=== PATIENT | male | born 1970 | race Caucasian/White ===

== ENCOUNTER 2021-05-21 23:35 | Emergency (ER) | payer BC ==
[2021-05-22] MEDS: Sodium Chloride 0.9% 10 ML Syringe FLUSH PRN ×2 (01:55→02:41)
[2021-05-22] MEDS ORDERED: Sodium Chloride 0.9% 10 ML SDV FLUSH ONE (02:40)
[2021-05-22] MEDS ORDERED: Iopamidol 755 Mg/ML 100 ML Bottle IVPUSH ONE (02:40)
--- NOTE | 2021-05-22 02:41 | EDM.PDOC ---
ED HPI GENERAL MEDICAL PROBLEM - General Chief Complaint: Neuro Symptoms/Deficits Stated Complaint: SPEECH IMPAIRMENT/RT SIDE WEAKNESS Time Seen by Provider: 05/21/21 23:49 Source of Information: Reports: Patient History Limitations: Reports: No Limitations - History of Present Illness INITIAL COMMENTS - FREE TEXT/NARRATIVE: The patient presents with trouble speaking and right arm weakness. His last time known well was 11pm the night before. He was at his son's wedding and he started drinking about 11pm and went to bed at about 3am. He was intoxicated then. He woke up at 11am and he said he had trouble getting his words. He can talk but he has trouble finding the right words. He also had some weakness in his right arm. He said on at work he had some trouble with his right arm not working right. It went away in a few minutes. He has no fever, chills, cough, chest, pain, shortness of breath, abdominal pain, nausea or vomiting. This has never happened to him before. Onset: Gradual Duration: Hour(s): (about 24 hours ago) Severity: Mild Improves with: Reports: None Worsens with: Reports: None Associated Symptoms: Reports: No Other Symptoms - Related Data Allergies Allergy/AdvReac Type Severity Reaction Status Date / Time No Known Allergies Allergy Verified 01/09/18 14:29 Home Meds: Home Meds Clopidogrel Bisulfate [Plavix] 75 mg PO DAILY #30 tablet 05/22/21 [Rx] Past Medical History Neurological History: Reports: Other (See Below) Other Neuro History: Graves disease Endocrine/Metabolic History: Reports: Hypothyroidism, Other (See Below) - Infectious Disease History Infectious Disease History: Reports: Chicken Pox Social & Family History - Family History Family Medical History: No Pertinent Family History - Tobacco Use Tobacco Use Status *Q: Current Every Day Tobacco User Years of Tobacco use: 33 Packs/Tins Daily: 1.5 - Caffeine Use Caffeine Use: Reports: Coffee, Soda - Recreational Drug Use Recreational Drug Use: No ED ROS GENERAL - Review of Systems Review Of Systems: See Below Constitutional: Reports: No Symptoms HEENT: Reports: No Symptoms Respiratory: Reports: No Symptoms Cardiovascular: Reports: No Symptoms Endocrine: Reports: No Symptoms GI/Abdominal: Reports: No Symptoms : Reports: No Symptoms Musculoskeletal: Reports: No Symptoms Skin: Reports: No Symptoms Neurological: Reports: Trouble Speaking ED EXAM, NEURO - Physical Exam Exam: See Below Exam Limited By: No Limitations General Appearance: Alert, No Apparent Distress Ears: Normal External Exam Nose: Normal Inspection Head Exam: Atraumatic, Normocephalic Neck: Normal Inspection Respiratory/Chest: No Respiratory Distress, Lungs Clear, Normal Breath Sounds Cardiovascular: Regular Rate, Rhythm, No Edema, No Murmur GI/Abdominal: Soft, Non-Tender, No Organomegaly, No Mass Neurological: Alert, Oriented x 3, Other (He initially had trouble speaking and some right sided facial droop. The facial dropp improved.) #1 Interpretation EKG Date: 05/22/21 Time: 00:25 Rhythm: Other (sinus bradycardia) Rate (Beats/Min): 56 [place]: Normal P-Wave: Present QRS: Normal ST-T: Normal QT: Normal Course - Vital Signs Last Recorded V/S: Last Vital Signs Temp 98.5 F 05/21/21 23:57 Pulse 88 05/21/21 23:57 Resp 18 05/21/21 23:57 BP 174/102 H 05/21/21 23:57 Pulse Ox 94 L 05/21/21 23:57 - Orders/Labs/Meds Orders: Active Orders 24 hr Category Date Time Status Cardiac Monitoring [RC] . DIRECTED Care 05/21/21 23:56 Active Peripheral IV Care [RC] . DIRECTED Care 05/21/21 23:56 Active Ang Head [CT] Stat Exams 05/22/21 02:11 Taken Echo Comp wo Cont [US] Stat Exams 05/22/21 06:18 Ordered TSH [CHEM] Stat Lab 05/22/21 08:00 Received Sodium Chloride 0.9% [Normal Saline] 100 ml Med 05/22/21 02:45 Active IV ASDIRECTED Sodium Chloride 0.9% [Saline Flush] Med 05/21/21 23:56 Active 10 ml FLUSH ASDIRECTED PRN Peripheral IV Insertion Adult [OM.PC] Stat Oth 05/21/21 23:56 Ordered Medication Orders Sodium Chloride (Normal Saline) 100 mls @ 60 mls/min IV ASDIRECTED LILY Last Admin: 05/22/21 02:41 Dose: 60 mls/min Documented by: NIA Sodium Chloride (Sodium Chloride 0.9% 10 Ml Syringe) 10 ml FLUSH ASDIRECTED PRN PRN Reason: Keep Vein Open Last Admin: 05/22/21 02:41 Dose: 10 ml Documented by: Admin: 05/22/21 01:55 Dose: 10 ml Documented by: SHARONA Labs: Laboratory Tests 05/21/21 05/21/21 05/21/21 Range/Units 23:54 23:57 23:57 WBC 13.14 H (4.23-9.07) K/mm3 RBC 5.19 (4.63-6.08) M/mm3 Hgb 14.3 (13.7-17.5) gm/dl Hct 43.8 (40.1-51.0) % MCV 84.4 (79.0-92.2) fl MCH 27.6 (25.7-32.2) pg MCHC 32.6 (32.2-35.5) g/dl RDW Std Deviation 44.7 H (35.1-43.9) fL Plt Count 343 H (163-337) K/mm3 MPV 9.2 L (9.4-12.3) fl Neut % (Auto) 59.4 (34.0-67.9) % Lymph % (Auto) 29.1 (21.8-53.1) % [place] % (Auto) 9.3 (5.3-12.2) % Eos % (Auto) 1.6 (0.8-7.0) Baso % (Auto) 0.4 (0.1-1.2) % Neut # (Auto) 7.81 H (1.78-5.38) K/mm3 Lymph # (Auto) 3.83 H (1.32-3.57) K/mm3 [place] # (Auto) 1.22 H (0.30-0.82) K/mm3 Eos # (Auto) 0.21 (0.04-0.54) K/mm3 Baso # (Auto) 0.05 (0.01-0.08) K/mm3 PT 9.9 (9.7-12.0) SECONDS INR < 0.93 APTT 30.8 (21.7-31.4) SECONDS Sodium (136-145) mEq/L Potassium (3.5-5.1) mEq/L Chloride (98-107) mEq/L Carbon Dioxide (21-32) mEq/L Anion Gap (5-15) BUN (7-18) mg/dL Creatinine (0.7-1.3) mg/dL Est Cr Clr Drug Dosing Estimated GFR (MDRD) (>60) mL/min BUN/Creatinine Ratio (14-18) Glucose (70-99) mg/dL POC Glucose 117 H (70-99) mg/dL Calcium (8.5-10.1) mg/dL Total Bilirubin (0.2-1.0) mg/dL AST (15-37) U/L ALT (16-63) U/L Alkaline Phosphatase (46-116) U/L Troponin I (0.00-0.056) ng/mL Total Protein (6.4-8.2) g/dl Albumin (3.4-5.0) g/dl Globulin gm/dL Albumin/Globulin Ratio (1-2) Ethyl Alcohol (0.00) gm% 05/21/21 05/21/21 Range/Units 23:57 23:57 WBC (4.23-9.07) K/mm3 RBC (4.63-6.08) M/mm3 Hgb (13.7-17.5) gm/dl Hct (40.1-51.0) % MCV (79.0-92.2) fl MCH (25.7-32.2) pg MCHC (32.2-35.5) g/dl RDW Std Deviation (35.1-43.9) fL Plt Count (163-337) K/mm3 MPV (9.4-12.3) fl Neut % (Auto) (34.0-67.9) % Lymph % (Auto) (21.8-53.1) % [place] % (Auto) (5.3-12.2) % Eos % (Auto) (0.8-7.0) Baso % (Auto) (0.1-1.2) % Neut # (Auto) (1.78-5.38) K/mm3 Lymph # (Auto) (1.32-3.57) K/mm3 [place] # (Auto) (0.30-0.82) K/mm3 Eos # (Auto) (0.04-0.54) K/mm3 Baso # (Auto) (0.01-0.08) K/mm3 PT (9.7-12.0) SECONDS INR APTT (21.7-31.4) SECONDS Sodium 138 (136-145) mEq/L Potassium 3.9 (3.5-5.1) mEq/L Chloride 105 (98-107) mEq/L Carbon Dioxide 24 (21-32) mEq/L Anion Gap 12.9 (5-15) BUN 14 (7-18) mg/dL Creatinine 0.8 (0.7-1.3) mg/dL Est Cr Clr Drug Dosing TNP Estimated GFR (MDRD) > 60 (>60) mL/min BUN/Creatinine Ratio 17.5 (14-18) Glucose 116 H (70-99) mg/dL POC Glucose (70-99) mg/dL Calcium 9.1 (8.5-10.1) mg/dL Total Bilirubin 0.2 (0.2-1.0) mg/dL AST 16 (15-37) U/L ALT 26 (16-63) U/L Alkaline Phosphatase 147 H (46-116) U/L Troponin I < 0.017 (0.00-0.056) ng/mL Total Protein 7.3 (6.4-8.2) g/dl Albumin 3.5 (3.4-5.0) g/dl Globulin 3.8 gm/dL Albumin/Globulin Ratio 0.9 L (1-2) Ethyl Alcohol 0.00 (0.00) gm% Meds: Medications Generic Name Dose Route Start Last Admin Trade Name Freq PRN Reason Stop Dose Admin Sodium Chloride 100 mls @ 60 mls/min 05/22/21 02:45 05/22/21 02:41 Normal Saline IV 60 mls/min ASDIRECTED LILY Administration Sodium Chloride 10 ml 05/21/21 23:56 05/22/21 02:41 Sodium Chloride 0.9% 10 Ml Syringe FLUSH 10 ml ASDIRECTED PRN Administration Keep Vein Open Discontinued Medications Generic Name Dose Route Start Last Admin Trade Name Freq PRN Reason Stop Dose Admin Aspirin 324 mg 05/22/21 03:47 05/22/21 04:21 Aspirin 81 Mg Tab.Chew PO 05/22/21 03:48 324 mg ONETIME ONE Administration Iopamidol 100 ml 05/22/21 02:40 05/22/21 02:41 Iopamidol 755 Mg/Ml 100 Ml Bottle IVPUSH 05/22/21 02:41 100 ml ONETIME ONE Administration Sodium Chloride 10 ml 05/22/21 02:40 05/22/21 03:14 Sodium Chloride 0.9% 10 Ml Sdv FLUSH 05/22/21 02:41 10 ml ONETIME ONE Administration - Re-Assessments/Exams Free Text/Narrative Re-Assessment/Exam: 05/22/21 02:51 A stroke alert was called. His last time known well was 11pm on 05/20/21. I ordered an IV saline lock, EKG, CT of his head and labs. His EKG shows a sinus bradycardia with no acute changes. His CT shows no acute intracranial hemorrhage or edema identified. His CBC and CMP look good. 05/22/21 02:54 His WBC was elevated at 13.14. His PT and PTT are normal. His alk phos was elevated at 147. His troponin is negative. I have ordered a CT angio of his head and neck. 05/22/21 06:[address] angio of his head and neck shows no acute changes. His symptoms are gone. There are no beds at this time. The patient refuses a COVID 19 swab. I will try to get an MRI of his brain in the morning and an echo and possibly discharge if they are normal. 05/22/21 08:39 The MRI of his brain shows a small area of acute infarct seen within the left periventricular white matter measuring 1.5cm in size. Minimal increased signal within this area is seen on the FLAIR sequence. No other acute abnormality is appreciated. The patient did have a CVA. He still has some trouble getting his words. He has no weakness in his arm. He was to far out for thrombolytics when he came in and for clot retrieval. His NIH was also to low. I did call the [facility] and they have been looking for a bed all night. I did called a neurologist at [facility] in [place] and talked with Dr De La Cruz and he recommended aspirin and plavix for 3 weeks and follow up with neurology. He did want the echo done and if that was good he may go home. I talked with the patient and he was okay with the plan. He was okay going home. He will be getting the US at 9am this morning. Departure - Departure Time of Disposition: 08:45 Disposition: Home, Self-Care 01 Condition: Good Clinical Impression: CVA (cerebral vascular accident) Qualifiers: CVA mechanism: unspecified Qualified Code(s): I63.9 - Cerebral infarction, unspecified - Discharge Information *PRESCRIPTION DRUG MONITORING PROGRAM REVIEWED*: Not Applicable *COPY OF PRESCRIPTION DRUG MONITORING REPORT IN PATIENT IZABEL: Not Applicable Prescriptions: Clopidogrel Bisulfate [Plavix] 75 mg PO DAILY #30 tablet Referrals: Joanne Chery MD [Primary Care Provider] - 1 Week Isacc Hines MD [Ordering Only Provider] - 1 Week Forms: ED Department Discharge Additional Instructions: Take plavix 75mg daily and aspirin 81mg daily. Keep taking your other medications. Follow up with Dr Chery this week and Dr Hines. Follow up with John Bone at [facility]. She is a speech pathologist and she can help. Please return if you are worse. Sepsis Event Note (ED) - Evaluation Sepsis Screening Result: No Definite Risk - Focused Exam Vital Signs: Vital Signs Temp Pulse Resp BP Pulse Ox 05/21/21 23:57 98.5 F 88 18 174/102 H 94 L - My Orders Last 24 Hours: My Active Orders 05/21/21 23:56 Cardiac Monitoring [RC] . DIRECTED Peripheral IV Care [RC] . DIRECTED Sodium Chloride 0.9% [Saline Flush] 10 ml FLUSH ASDIRECTED PRN Peripheral IV Insertion Adult [OM.PC] Stat 05/22/21 02:11 Ang Head [CT] Stat 05/22/21 02:45 Sodium Chloride 0.9% [Normal Saline] 100 ml IV ASDIRECTED 05/22/21 06:18 Echo Comp wo Cont [US] Stat 05/22/21 08:00 TSH [CHEM] Stat - Assessment/Plan Last 24 Hours: My Active Orders 05/21/21 23:56 Cardiac Monitoring [RC] . DIRECTED Peripheral IV Care [RC] . DIRECTED Sodium Chloride 0.9% [Saline Flush] 10 ml FLUSH ASDIRECTED PRN Peripheral IV Insertion Adult [OM.PC] Stat 05/22/21 02:11 Ang Head [CT] Stat 05/22/21 02:45 Sodium Chloride 0.9% [Normal Saline] 100 ml IV ASDIRECTED 05/22/21 06:18 Echo Comp wo Cont [US] Stat 05/22/21 08:00 TSH [CHEM] Stat
[2021-05-22] MEDS ORDERED: Sodium Chloride 0.9% 100 ML IV SCH (02:45)
[2021-05-22] MEDS ORDERED: Aspirin 81 MG Tab.Chew PO ONE (03:47)
--- NOTE | 2021-05-22 07:43 | MR ---
MRI brain Technique: Multiple coronal images were obtained through the brain. T2, T2 FLAIR, T1 and diffusion axial; T1 and T2 gradient echo coronal images were obtained. Comparison: Prior head CT study of 05/21/21. Findings: Ventricles along with basal cisterns and sulci over the convexities appear within normal limits for the patient's age. Small area of abnormal diffusion is seen within the periventricular white matter on the left side. This shows increased signal on the FLAIR sequence. This finding is compatible with small area of acute ischemia. Overall, this finding measures 1.5 cm. No other diffusion abnormalities are seen. No other areas of abnormal signal are seen within the brain parenchyma. No midline shift or mass-effect is seen. Minimal mucosal thickening is seen within the left maxillary sinus. Impression: 1. Small area of acute infarct seen within the left periventricular white matter measuring 1.5 cm in size. Minimal increased signal within this area is seen on the FLAIR sequence. 2. No other acute abnormality is appreciated. Diagnostic code #5
--- NOTE | 2021-05-22 08:02 | CT ---
Head CT Technique: Multiple axial sections through the brain were obtained. Reconstructed coronal and sagittal images were obtained. Comparison: Prior head CT study of 01/07/18 and MRI brain of 01/09/18. Findings: Ventricles along with basal cisterns and sulci over the convexities are within normal limits for the patient's age. No abnormal parenchymal densities are seen. No evidence of intracranial hemorrhage is seen. No midline shift or mass-effect is seen. Bone window settings were reviewed. Visualized mastoid sinuses are clear. Minimal mucosal thickening is seen within the left maxillary sinus. No acute calvarial abnormality is appreciated. Impression: 1. Nothing acute is seen on noncontrast head CT study. 2. Minimal chronic mucosal thickening within the left maxillary sinus. Diagnostic code #2 I agree with preliminary report from kandy, finalized on 05/22/21, 1:16 AM CDT, code 1
--- NOTE | 2021-05-22 08:20 | CT ---
CT angiogram of neck Technique: Multiple noncontrast axial images were obtained to the neck. Intravenous contrast was then utilized in the arterial phase through the neck with reconstructed coronal and sagittal images obtained. Comparison: Prior carotid ultrasound of 01/09/18. Findings: Common carotid arteries are patent. Proximal external carotid arteries are patent. Both internal arteries are patent into the carotid siphon. No focal stenosis or occlusion is seen. Both vertebral arteries are patent. Basilar artery is also patent. No focal stenosis or occlusion is seen. Visualized lung apices are clear. No soft tissue finding is appreciated within the neck. Slight mucosal thickening is seen within both maxillary sinuses. Visualized portions of the carotid siphon show patent proximal anterior and middle cerebral arteries. Both posterior cerebral arteries are also patent. Impression: 1. Slight mucosal thickening within both maxillary sinuses. 2. No additional abnormality is appreciated on CT angiogram of the neck. Diagnostic code #2
[2021-05-22] MEDS ORDERED: Clopidogrel 75 MG Tab PO ONE (08:39)
--- NOTE | 2021-05-22 13:41 | CT ---
MR angiogram of brain Technique: Multiple axial sections were obtained partially through the brain. Intravenous contrast was utilized in the arterial phase. This study was dictated as part of CT neck angiogram exam, please see that report for further details. Diagnostic code #1
== END 2021-05-22 10:05 | disposition home or self-care (01) ==
LOC: JD.ED 23:35
DX: I63.9 Cerebral infarction, unspecified (principal); Z72.0 Tobacco use; Z79.02 Long term (current) use of antithrombotics/antiplatelets
CPT/HCPCS: 36415; 70450; 70496; 70498; 70551; 80053; 80307; 82947; 84443; 84484; 85025; 85610; 85730; 93005; 93306; 99285; A9270; Q9967

== ENCOUNTER 2023-04-27 10:14 | Emergency (ER) | payer BC ==
[2023-04-27] MEDS ORDERED: Sodium Chloride 0.9% 10 ML Syringe FLUSH PRN (10:35)
[2023-04-27 10:56] LABS: BASOPHILS ABSOLUTE AUTO 0.1 K/mm3 (0.0-0.2); BASOPHILS PERCENT AUTO 0.5 % (0.0-1.0); EOSINOPHILS ABSOLUTE AUTO 0.3 K/mm3 (0.0-0.4); EOSINOPHILS PERCENT AUTO 1.8 % (0.0-6.0); HEMATOCRIT 43.4 % (42.0-52.0); HEMOGLOBIN 14.1 gm/dl (14.0-18.0); IMMATURE GRAN ABSOLUTE AUTO 0.06 K/mm3 (0.00-0.05); IMMATURE GRAN PERCENT AUTO 0.4 % (0.0-0.4); LYMPHOCYTES ABSOLUTE AUTO 1.8 K/mm3 (1.0-4.8); LYMPHOCYTES PERCENT AUTO 10.5 % (24.0-44.0); MEAN CORPUSCULAR HEMOGLOBIN 28.1 pg (28.0-32.0); MEAN CORPUSCULAR HGB CONC 32.5 g/dl (32.0-36.0); MEAN CORPUSCULAR VOLUME 86.6 fl (83.0-99.0); MEAN PLATELET VOLUME 9.3 fl (9.4-12.4); MONOCYTES ABSOLUTE AUTO 0.8 K/mm3 (0.0-0.8); MONOCYTES PERCENT AUTO 4.9 % (0.0-8.0); NEUTROPHILS ABSOLUTE AUTO 13.9 K/mm3 (1.8-7.7); NEUTROPHILS PERCENT AUTO 81.9 % (41.0-71.0); PLATELET COUNT,PLT 312 K/mm3 (150-400); RED BLOOD CELL COUNT 5.01 M/mm3 (4.52-5.90); WHITE BLOOD CELL COUNT,WBC 16.98 K/mm3 (3.9-11.3)
[2023-04-27 11:10] LABS: ALBUMIN 3.8 g/dl (3.4-5.0); ANION GAP 12.4 (5-15); BILIRUBIN TOTAL 0.3 mg/dL (0.2-1.0); BUN/CREATININE RATIO 23.3 (14-18); CALCIUM 9.1 mg/dL (8.5-10.1); CREATININE 0.9 mg/dL (0.7-1.3); EST CRCL DRUG DOSING (CG) 87.63 mL/min; POTASSIUM,K 4.4 mEq/L (3.5-5.1); PROTEIN TOTAL,TP 7.7 g/dl (6.4-8.2)
[2023-04-27] MEDS ORDERED: Heparin Sodium 5,000 Units/ML Vial IVPUSH ONE (11:15)
[2023-04-27] MEDS ORDERED: Heparin Sodium/D5W 25,000 UNITS/500 ML BAG IV SCH (11:15)
== END 2023-04-27 12:20 | disposition home or self-care (01) ==
LOC: JD.ED 10:14
DX: I21.4 Non-ST elevation (NSTEMI) myocardial infarction (principal); E78.00 Pure hypercholesterolemia, unspecified; I10 Essential (primary) hypertension; E03.9 Hypothyroidism, unspecified; F17.210 Nicotine dependence, cigarettes, uncomplicated; Z91.018 Allergy to other foods; Z79.01 Long term (current) use of anticoagulants; Z79.899 Other long term (current) drug therapy
CPT/HCPCS: 36415; 71045; 80053; 84484; 85025; 93005; 96365; 99285; J1644; J3490; 93010